=== PATIENT | female | born 1995 | race Caucasian/White ===

== ENCOUNTER → 2017-03-31 | Outpatient (CLI) | payer BC ==
--- NOTE | 2017-03-31 11:20 | KCIC ---
CT MAXILLOFACIAL WO CONTRAST Indication: Chronic sinusitis, right-sided congestion and polyps, deviated septum Technique: NoncontrastCT imaging was performed of the maxillofacial region, multiplanar reconstruction images submitted. One or more of the following individualized dose reduction techniques were utilized for this examination: 1. Automated exposure control 2. Adjustment of the mA and/or kV according to patient size 3. Use of iterative reconstruction technique. Contrast: None Comparison: None Findings: There are no air-fluid levels of the paranasal sinuses. Paranasal sinuses are overall aerated without significant mucosal thickening. Ostiomeatal units are patent bilaterally. Mastoid air cells are aerated. No acute fracture is identified. IMPRESSION: 1. Paranasal sinuses are aerated, no air-fluid levels. Electronically signed by: Joeshp Liz MD (03/31/2017 11:17 AM) [email or web address]
== END | disposition home or self-care (01) ==
LOC: KCIC CT 10:09
PROVIDERS: ATTEND Otolaryngology
DX: J32.4 Chronic pansinusitis (principal); J34.2 Deviated nasal septum
CPT/HCPCS: 70486